=== PATIENT | female | born 1995 | race Caucasian/White ===

== ENCOUNTER 2023-09-13 17:29 | Emergency (ER) | payer SELFPAY ==
[~2023-09-13] VITALS: Ht 167.6 cm; Wt 79.4 kg
[2023-09-13 18:00] VITALS: PULSE 77; RESP 20; TEMP 98.2
[2023-09-13 18:36] LABS: BILIRUBIN,URINE NEGATIVE (NEGATIVE); CLARITY,URINE SL CLOUDY (CLEAR); COLOR,URINE YELLOW (YELLOW); GLUCOSE, URINE NEGATIVE (NEGATIVE); KETONES,URINE NEGATIVE (NEGATIVE); LEUKOCYTE ESTERASE ,URINE NEGATIVE (NEGATIVE); NITRITE,URINE NEGATIVE (NEGATIVE); PH,URINE 6 (5 - 7); PREGNANCY TEST, URINE NEGATIVE (NEGATIVE); PROTEIN,URINE DIPSTICK NEGATIVE (NEGATIVE); URINE UROBILINOGEN 0.2 mg/dL (0.2 - 1)
[2023-09-13 18:49] LABS: BACTERIA,URINE MODERATE /HPF; EPITHELIAL CELLS,URINE MODERATE /LPF; TRANSITIONAL EPI CELLS,URINE MODERATE
[2023-09-13] MEDS ORDERED: DOXYCYCLINE HY100 MG PO (18:55)
[2023-09-13] MEDS ORDERED: METRONIDAZOLE500 MG PO (18:55)
[2023-09-13 19:27] VITALS: BP 121/79; PULSE 67; RESP 16; TEMP 98.8; O2SAT 100
== END 2023-09-13 19:36 | disposition home or self-care (01) ==
LOC: ER 17:47
DX: R30.0 Dysuria (principal); N89.8 Other specified noninflammatory disorders of vagina; N80.9 Endometriosis, unspecified
CPT/HCPCS: 81001; 81025; 99283